=== PATIENT | female | born 1965 | race Caucasian/White ===

== ENCOUNTER 2023-02-06 06:51 | Day surgery (SDC) | payer OTHER, SELFPAY ==
--- NOTE | 2023-02-06 | PATH_ITS ---
[facility] Accession Number: [id number] No. of containers..01 Tissue . 01 Material submitted: . rectum - RECTAL POLYP . 01 Diagnosis: Rectal Polyp: Hyperplastic polyp. MRV 02/08/2023 1711 Local . 01 Electronically signed: . Jewel Gongora MD, PhD, Pathologist NPI- [id number] . 01 Gross description: . RECTAL POLYP: Received in formalin is 1 fragment(s) of bennett, soft tissue measuring 0.4 x 0.2 x 0.1 cm submitted entirely in 1 cassette(s) /CPE 02/07/2023 0840 Local . 01 Pathologist provided ICD-10: K62.1 . 01 CPT . 058880 Specimen Comment: A courtesy copy of this report has been sent to [phone] Performed at: 01 [facility] Cytology [address] [place] [address] [id number] MD Tucker Quesada MD Phone: [phone]
[2023-02-06] MEDS: LACTATED RINGERS 1,000 ML 84 ML IV (07:32)
[2023-02-06 07:35] VITALS: BP 130/73; PULSE 71; RESP 16; TEMP 36.4; O2SAT 99; BMI 26.4
--- NOTE | 2023-02-06 07:51 | PM.HP.1 ---
History of Present Illness History of Present Illness Date Patient Seen: 02/06/23 Time Patient Seen: 07:51 Chief complaint: [facility] [place] Narrative: Here for colon cancer screening. Indicates she had a colonoscopy about 6 years ago with colon polyps down in [place]. No family history of colon cancer. [facility] Social History household members: spouse Meds Home Medications and Allergies Home Medications Medication Instructions Recorded Confirmed Type No Known Home Medications 02/06/23 02/06/23 History Allergies Allergy/AdvReac Type Severity Reaction Status Date / Time No Known Drug Allergies Allergy Verified 02/06/23 07:34 Review of Systems Review of Systems ROS: Yes All systems reviewed with the patient and are negative except as otherwise documented Exam Vital Signs (past 8 hours): - 02/06/23 07:35 Temperature 97.5 F L Pulse Rate 71 Respiratory Rate 16 Blood Pressure 130/73 Pulse Oximetry 99 Oxygen Delivery Method Room Air Oxygen Delivery Method Room Air Const General: cooperative HENMT Head: normal to inspection Eyes General: appearance normal, both eyes and all related structures Neck Neck: normal visual inspection Chest Chest: normal inspection of the chest Resp Effort & Inspection: normal respiratory effort Cardio Rate: regular rate GI Inspection: normal to inspection Skin General: no rashes or lesions noted Neuro General: patient alert and patient awake Extrem General: normal to inspection and no pedal edema Psych Appearance: grossly normal Assessment & Plan Assessment & Plan narrative: 57-year-old female with a personal history of colon polyps. Colonoscopy surveillance is pursued today.
--- NOTE | 2023-02-06 07:52 | PM.PREOP ---
Pre-operative Note Interval Note History & Physical reviewed/Exam performed by Physician: Yes Changes to H&P: No ASA Class (for procedural sedation): I
--- NOTE | 2023-02-06 08:16 | P.OP.COLON_ITS ---
Operative Date/Time/Diagnoses Date of procedure: 02/06/23 Time of procedure: 08:16 Pre-op diagnosis: Personal history of colon polyps Post-op diagnosis: same Procedure & Clinicians Study performed: Colonoscopy with cold snare polypectomy Same procedure as scheduled: Yes Indications: Personal history of colon polyps Surgeon: Aj Mckeon Procedure Notes SCOAP/Timeout: Done Procedure in detail: After the risks and benefits were explained, written and verbal informed consent was obtained. The patient was brought into the procedure room and placed into the left lateral decubitus position. Please see anesthesia notes for sedation details. Digital rectal examination was accomplished. The scope was introduced into the patient and advanced under direct visualization to the cecum as identified by the appendiceal orifice and ileocecal valve. The scope was slowly withdrawn to carefully examine the mucosa for any defects or lesions. Comprehensive imaging was accomplished throughout the rectum including the den medley line. The colon was decompressed, the scope was then removed from the patient who tolerated the procedure well. Pediatric colonoscope Bowel prep adequate Scope withdrawal time: 10 minutes Sedation minutes: 20 Complications: none Impression: There was a 4 mm polyp in the proximal rectum removed with cold snare. No additional mucosal pathology was appreciated throughout. Endoscopic diagnosis 1. Diminutive rectal polyp 2. Otherwise visually unremarkable colonoscopy Post-procedure Plan for aftercare: 1. Await histopathology. 2. Repeat colonoscopy will likely be suggested for 7 years. Disposition: PACU
[2023-02-06 08:17] VITALS: BP 86/52; PULSE 73; RESP 17; TEMP 36.3; O2SAT 96
[2023-02-06 08:22] VITALS: BP 81/54; PULSE 69; RESP 18; O2SAT 99
[2023-02-06 08:32] VITALS: BP 97/61; PULSE 59; RESP 18; TEMP 36.4; O2SAT 99
== END 2023-02-06 08:44 | disposition home or self-care (01) ==
PROVIDERS: Referring Provider Internal Medicine Gastroenterology; Visit Provider Internal Medicine Gastroenterology
PROC: 0DJD8ZZ Inspection of Lower Intestinal Tract, Via Natural or Artificial Opening Endoscopic (ICD-10-PCS; CPT 45378; principal; 2023-02-06 08:00)
DX: Z12.11 Encounter for screening for malignant neoplasm of colon (principal); Z86.010 Personal history of colon polyps; K62.1 Rectal polyp
CPT/HCPCS: 45385; J2704